=== PATIENT | female | born 1950 | race Caucasian/White ===

== ENCOUNTER 2017-04-19 14:20 | Outpatient (CLI) | payer OTHER ==
--- NOTE | 2017-04-21 10:12 | XRAY Report ---
RIGHT TOES: 04/19/2017. COMPARISON STUDY: No comparison. INDICATION: Toe pain. TECHNIQUE: Three views of the right toes. FINDINGS: There is a mildly displaced fracture of the great toe distal phalanx. No other acute bone findings are seen. There are mild degenerative changes of the 1st metatarsophalangeal joint. Soft tissue appears grossly unremarkable. IMPRESSION: Fracture of the great toe distal phalanx. JOB #: [id number] EXT JOB #:[id number]
== END 2017-04-19 14:21 | disposition home or self-care (01) ==
LOC: DI.S 14:20
PROVIDERS: ATTEND Internal Medicine
DX: S92.421A Displaced fracture of distal phalanx of right great toe, initial encounter for closed fracture (principal)
CPT/HCPCS: 73660

== ENCOUNTER 2017-08-14 15:12 | Outpatient (CLI) | payer OTHER ==
--- NOTE | 2017-08-15 15:11 | DEXA Report ---
DEXA SCAN: 08/14/2017 CLINICAL INDICATION: Postmenopausal. TECHNIQUE: Dual energy x-ray absorptiometry (DXA) was performed on a [employer] system. Regions measured are the AP spine, femoral neck, and, if needed, forearm. COMPARISON: None. In accordance with the International Society for Clinical Densitometry (ISCD) guidelines, data from previous exams may be reanalyzed using current recommendations and techniques. This is done to allow a more accurate basis for comparison with the current study. FINDINGS: The data for the lumbar spine is as follows: REGION BMD (g/cm/cm) T-SCORE Z-SCORE L1 0.758 -3.1 -1.1 L2 0.836 -3.0 -1.0 L3 0.931 -2.2 -0.3 L4 1.049 -1.3 0.7 TOTAL 0.907 -2.3 -0.3 NOTE: All evaluable vertebrae are used for classification. The data for the hip is as follows: REGION BMD (g/cm/cm) T-SCORE Z-SCORE Neck 0.715 -2.3 -0.6 TOTAL 0.812 -1.6 -0.1 IMPRESSION: THE WHO CLASSIFICATION BASED ON THE INTERNATIONAL REFERENCE STANDARD IS OSTEOPENIA. THE FRACTURE RISK IS INCREASED. RECOMMENDATION: Patients with diagnosis of osteoporosis or osteopenia should have regular bone mineral density assessment. For those eligible for Medicare, routine testing is allowed once every 2 years. Testing frequency can be increased for patients who have rapidly progressing disease or for those who are receiving medical therapy to restore bone mass. COMMENT: World Health Organization (WHO) definitions for osteoporosis and osteopenia: NORMAL BMD: T-score at 1.0 or higher, fracture risk is low. OSTEOPENIA BMD: T-score between 1.0 and -2.5, fracture risk is increased. OSTEOPOROSIS BMD: T-score at 2.5 or lower, fracture risk high. National Osteoporosis Foundation recommends: 1. Obtain adequate dietary calcium (at least 1200 mg per day) and vitamin D (400 -800 international units per day). 2. Participate, as appropriate, in regular weightbearing and muscle- strengthening exercise. 3. Avoid tobacco use and reduce alcohol and caffeine intake. 4. For more detailed information see the website at www.NOF.org. MTDD
== END 2017-08-14 15:13 | disposition home or self-care (01) ==
LOC: DI 15:12
PROVIDERS: ATTEND Physician Assistant
DX: Z13.820 Encounter for screening for osteoporosis (principal); M85.89 Other specified disorders of bone density and structure, multiple sites; Z78.0 Asymptomatic menopausal state
CPT/HCPCS: 77080

== ENCOUNTER 2019-08-19 15:07 | Outpatient (CLI) | payer OTHER ==
--- NOTE | 2019-08-19 15:55 | XRAY Report ---
Reason: PAIN IN LEFT ANKLE AND JOINTS OF L FOOT Procedure Date: 08/19/2019 Accession Number: [id number] / [id number] Procedure: XR - Ankle 3 View LT CPT Code: Final Report FULL RESULT: EXAM: LEFT ANKLE RADIOGRAPHY EXAM DATE: 08/19/2019 03:42 PM. CLINICAL HISTORY: PAIN IN LEFT ANKLE AND JOINTS OF L FOOT. COMPARISON: None. TECHNIQUE: 3 views. FINDINGS: Bones: Transverse nondisplaced fracture of the distal left fibula below the level of the ankle joint. Remaining osseous structures are intact. Joints: Normal. No effusion. No subluxations. The ankle mortise is normally aligned. Soft Tissues: Moderate left ankle soft tissue swelling noted. No radiopaque foreign bodies are noted. IMPRESSION: 1. Transverse nondisplaced distal left fibular fracture. 2. Normal alignment. 3. Moderate ankle soft tissue swelling. RADIA
--- NOTE | 2019-08-19 16:35 | Ultrasound Report ---
Reason: PAIN IN LEFT ANKLE AND JOINTS OF L FOOT Procedure Date: 08/19/2019 Accession Number: [id number] / [id number] Procedure: US - Duplex Ext Veins Left CPT Code: Final Report FULL RESULT: EXAM: LEFT LOWER EXTREMITY VENOUS ULTRASOUND EXAM DATE: 08/19/2019 04:09 PM. CLINICAL HISTORY: PAIN IN LEFT ANKLE AND JOINTS OF L FOOT. Ankle sprain 3 days ago. Nondisplaced fracture lateral malleolus. COMPARISON: ANKLE 3 VIEW LT 08/19/2019 3:26 PM. TECHNIQUE: Real-time sonographic vascular imaging was performed by the quality systems specialist through the lower extremity utilizing both color-flow and Doppler spectral analysis. Multiple car sales representative static images were saved for review. FINDINGS: Common Femoral Vein (CFV): Normal. CFV-GSV Junction: Normal. Profunda Femoral Vein (PFV): Normal. Femoral Vein (FV) Prox: Normal. Femoral Vein (FV) Mid: Normal. Femoral Vein (FV) Dist: Normal. Popliteal Vein: Normal. Posterior Tibial Veins: Normal. Peroneal Veins: Normal. Contralateral Side CFV: Normal. Other: None. IMPRESSION: No evidence for deep venous thrombosis. RADIA
== END 2019-08-19 15:08 | disposition home or self-care (01) ==
LOC: DI 15:07
PROVIDERS: ATTEND Nurse Practitioner Family
DX: S82.425A Nondisplaced transverse fracture of shaft of left fibula, initial encounter for closed fracture (principal)

== ENCOUNTER 2020-07-10 08:46 | Outpatient (CLI) | payer OTHER ==
--- NOTE | 2020-07-10 16:36 | XRAY Report ---
PROCEDURE: Lumbar Spine 2 View INDICATIONS: OSTEOPENIA, RT KNEE PAIN, LOW BACK PAIN TECHNIQUE: 3 views of the lumbar spine were acquired. COMPARISON: Abdomen pelvis CT includes the LS-spine reviewed 10/25/2015 FINDINGS: Bones: 5 [id number] vertebrae are present. There is slightly dextroscoliotic bony alignment. No vertebral body compression fractures. No suspicious bony lesions. Degenerative disc disease is m ild to moderate at L5-S1, and facet osteoarthritis is moderately severe from L3 inferiorly and become s progressively more prominent as the lumbosacral junction is approached. Soft tissues: Overlying bowel gas pattern is normal. No suspicious soft tissue calcifications. IMPRESSION: No compression fracture found. Moderately severe degenerative disc disease and facet ost eoarthritis over the lower 3 segments of the LS-spine and most pronounced at L5-S1. Reviewed by: Ludwig Amos MD on 07/10/2020 4:35 PM PST Approved by: Ludwig Amos MD on 07/10/2020 4:35 PM PST Station ID: [id number]
--- NOTE | 2020-07-10 16:36 | XRAY Report ---
PROCEDURE: Knee 3 View RT INDICATIONS: OSTEOPENIA, RT KNEE PAIN, LOW BACK PAIN TECHNIQUE: 3 views of the right knee(s) were acquired. COMPARISON: None. FINDINGS: Bones: No fractures or dislocations. No suspicious bony lesions. Soft tissues: No joint effusion. No suspicious soft tissue calcifications. IMPRESSION: Minimal thinning of the joint interspace at the medial compartment, no trauma or effusio n found. No loose body suspected. Reviewed by: Ludwig Amos MD on 07/10/2020 4:35 PM PST Approved by: Ludwig Amos MD on 07/10/2020 4:35 PM PST Station ID: [id number]
== END 2020-07-10 08:47 | disposition home or self-care (01) ==
LOC: DI 08:46
PROVIDERS: ATTEND Nurse Practitioner Family
DX: M51.37 Other intervertebral disc degeneration, lumbosacral region (principal); M47.817 Spondylosis without myelopathy or radiculopathy, lumbosacral region; M25.561 Pain in right knee; M85.80 Other specified disorders of bone density and structure, unspecified site

== ENCOUNTER 2020-08-07 15:25 | Outpatient (CLI) | payer OTHER ==
--- NOTE | 2020-08-07 16:33 | DEXA Report ---
PROCEDURE: Dexa Spine and/or Hip INDICATIONS: OSTEOPENIA TECHNIQUE: Dual energy x-ray absorptiometry (DXA) was performed on a [employer] System. Regions measur ed are the AP Spine, femoral neck, and if needed forearm. COMPARISON: DEXA 08/14/2017 FINDINGS: Lumbar Spine: Bone Mineral Density 0.838 g/cm/cm,T score -2.8, compared to -2.3 on prior exam. Left Hip: Bone Mineral Density 0.741 g/cm/cm,T score -2.1, compared to -1.6 on prior exam. Left Femoral Neck: Bone Mineral Density 0.698 g/cm/cm, T score -2.4, compared to -2.3 on prior exam. (T score greater or equal to -1.0: NORMAL) (T score from -1.1 to -2.4: OSTEOPENIA) (T score less than or equal to -2.5 to: OSTEOPOROSIS) Impression: Progressive loss of bone mineral density compared to prior exam now demonstrating osteopo rosis in the lumbar spine and borderline osteoporosis in the left femoral neck. Patients with diagnosis of osteoporosis or osteopenia should have regular bone mineral density assess ment. For those eligible for Medicare, routine testing is allowed once every 2 years. Testing frequ ency can be increased for patients who have rapidly progressing disease or for those who are receivin g medical therapy to restore bone mass. Reviewed by: Arminda Rodriguez MD on 08/07/2020 4:32 PM PST Approved by: Arminda Rodriguez MD on 08/07/2020 4:32 PM PST Station ID: [id number]
== END 2020-08-07 15:26 | disposition home or self-care (01) ==
LOC: DI 15:25
PROVIDERS: ATTEND Nurse Practitioner Family
DX: M81.0 Age-related osteoporosis without current pathological fracture (principal); M54.5 Low back pain; M25.561 Pain in right knee

== ENCOUNTER 2022-02-26 08:00 | Outpatient (CLI) | payer OTHER | END 2022-02-26 23:59 | disposition home or self-care (01) | LOC: LAB 08:00 | PROVIDERS: ATTEND Physician Assistant Medical | DX: N39.0 Urinary tract infection, site not specified (principal); R39.15 Urgency of urination; R30.0 Dysuria | CPT/HCPCS: 87086; 87181 ==

== ENCOUNTER 2022-08-17 08:17 | Outpatient (CLI) | payer MEDICARE ==
--- NOTE | 2022-08-17 16:52 | DEXA Report ---
PROCEDURE: Dexa Spine and/or Hip INDICATIONS: OSTEOPOROSIS TECHNIQUE: Dual energy x-ray absorptiometry (DXA) was performed on a [employer] System. Regions measur ed are the AP Spine, femoral neck, and if needed forearm. COMPARISON: DEXA 08/07/2020 FINDINGS: Lumbar Spine: Bone Mineral Density 0.844 g/cm/cm,T score -2.8, compared to -2.8 Left Femoral Neck: Bone Mineral Density 0.693 g/cm/cm, T score -2.5, compared to -2.4 Left Hip: Bone Mineral Density 0.796 g/cm/cm,T score -1.7, compared to -2.1 (T score greater or equal to -1.0: NORMAL) (T score from -1.1 to -2.4: OSTEOPENIA) (T score less than or equal to -2.5 to: OSTEOPOROSIS) Impression: Relatively stable bone mineral density within the lumbar spine and femoral neck with improvement of b one mineral density in the left hip. Images of the spine and femoral neck are osteoporotic. Patients with diagnosis of osteoporosis or osteopenia should have regular bone mineral density assess ment. For those eligible for Medicare, routine testing is allowed once every 2 years. Testing frequ ency can be increased for patients who have rapidly progressing disease or for those who are receivin g medical therapy to restore bone mass. Reviewed by: Arminda Rodriguez MD on 08/17/2022 4:51 PM PST Approved by: Arminda Rodriguez MD on 08/17/2022 4:51 PM PST Station ID: [id number]
== END 2022-08-17 08:18 | disposition home or self-care (01) ==
LOC: DI 08:17
PROVIDERS: ATTEND Nurse Practitioner Family
DX: M81.0 Age-related osteoporosis without current pathological fracture (principal)

== ENCOUNTER 2022-09-12 10:44 | Outpatient (CLI) | payer MEDICARE ==
--- NOTE | 2022-09-13 12:44 | Mammography Report ---
BILATERAL DIGITAL SCREENING MAMMOGRAM 3D/2D WITH EXAGGERATED CC: 09/12/2022 CLINICAL: Routine screening. Family history of breast cancer. Comparison is made to exam dated: 12/13/2007 mammogram - [facility]. Both breasts are heterogeneously dense, which may obscure small masses (category c / 51-75% glandular tissue). No significant masses, calcifications, or other findings are seen in either breast. There has been no significant interval change. IMPRESSION: NEGATIVE There is no mammographic evidence of malignancy. A 1 year screening mammogram is recommended. Based on the Tyrer Cuzick model (a risk assessment model) the patients lifetime risk is 7.8% and her 10 year risk is 4.9%. According to the ACR, ACS, and NCCN guidelines, an annual breast MRI exam eleuterio g with mammogram is recommended if the patients lifetime risk is 20% or greater. This exam was interpreted at Station ID: [id number]. NOTE: For mammograms, a report in lay terms will be sent to the patient. Approximately 15% of breast malignancies will not be visualized mammographically. In the management of a palpable breast mass, a negative mammogram must not discourage biopsy of a clinically suspicious lesion. Electronically Signed By: Kel chin/mame:09/12/2022 13:01:17 letter sent: No_Letter ACR BI-RADS Category 1: Negative 3341F PARENCHYMAL PATTERN: (D) - The breast(s) demonstrate(s) heterogeneously dense fibroglandular erendira garcía. BI-RADS CATEGORY: (1) - 1 Mammogram [id number] 1 year screening LATERALITY: (B)
== END 2022-09-12 10:45 | disposition home or self-care (01) ==
LOC: DI.S 10:44
DX: Z12.31 Encounter for screening mammogram for malignant neoplasm of breast (principal); Z80.3 Family history of malignant neoplasm of breast

== ENCOUNTER 2023-08-07 08:00 | Outpatient (CLI) | payer MEDICARE ==
--- NOTE | 2023-08-07 20:39 | XRAY Report ---
PROCEDURE: Foot 3+V RT INDICATIONS: PAIN IN RIGHT FOOT TECHNIQUE: 3 views of the foot were acquired. COMPARISON: None. FINDINGS: Bones: There is a mildly displaced comminuted displaced fracture within the mid portion of the fourt h proximal phalanx. No apparent intra-articular extension. Soft tissues: No suspicious soft tissue calcifications or masses. IMPRESSION: Mildly displaced comminuted fourth proximal phalanx fracture. Reviewed by: Arminda Rodriguez MD on 08/07/2023 8:38 PM [facility] Approved by: Arminda Rodriguez MD on 08/07/2023 8:38 PM [facility] Station ID: [id number]
== END 2023-08-07 23:59 | disposition home or self-care (01) ==
LOC: DI.S 08:00
PROVIDERS: ATTEND Registered Nurse
DX: S92.511A Displaced fracture of proximal phalanx of right lesser toe(s), initial encounter for closed fracture (principal)